=== PATIENT | male | born 1960 | race Caucasian/White ===

== ENCOUNTER 2017-03-27 08:41 | Day surgery (SDC) | payer MEDICAID, OTHER ==
[~2017-03-27 08:41] MED LIST: Lactated Ringers 1,000 ML IV SCH; Sodium Chloride 0.9% 10 ML Syringe FLUSH PRN
[2017-03-27] MEDS ORDERED: Propofol 200 MG/20 ML SDV ONE ×2 (11:02→11:18)
[2017-03-27] MEDS ORDERED: fentaNYL 100 MCG/2 ML SDV ONE (11:02)
[2017-03-27] MEDS ORDERED: Lactated Ringers 1,000 ML ONE (11:18)
[2017-03-27 12:04] VITALS: BP 117/66
--- NOTE | 2017-03-27 19:25 | OR ---
PREOPERATIVE DIAGNOSIS: Screening colonoscopy. POSTOPERATIVE DIAGNOSIS: Screening colonoscopy. PROCEDURE PERFORMED: Screening colonoscopy. INDICATION: The patient is a 56-year-old male from outside hospital, who presents for screening colonoscopy at this time. DESCRIPTION OF PROCEDURE: Procedure was done in the endoscopy suite. Sedation was given per Anesthesia. First, a rectal exam was done and was normal. Scope was then introduced in the rectum, slowly advanced through the rectum, sigmoid, descending, transverse, and ascending colon until the cecum was reached. Upon reaching the cecum, the scope was slowly withdrawn looking all mucosal surfaces on the way out. No mucosal abnormalities, lesions, or polyps were noted. FINAL DIAGNOSIS: Normal colonoscopy. BKD: 03/27/2017 11:37:01 MODL: 03/27/2017 19:19:48 /[id number]
== END 2017-03-27 12:45 | disposition home or self-care (01) ==
LOC: VM.SDS 08:41
PROVIDERS: ATTEND Surgery
DX: Z12.11 Encounter for screening for malignant neoplasm of colon (principal); I10 Essential (primary) hypertension; E78.5 Hyperlipidemia, unspecified; E66.9 Obesity, unspecified; G47.30 Sleep apnea, unspecified; Z79.82 Long term (current) use of aspirin; Z79.899 Other long term (current) drug therapy; Z68.38 Body mass index [BMI] 38.0-38.9, adult
CPT/HCPCS: 45378; J2704; J3010; J7120; 00810